=== PATIENT | female | born 2000 | race Caucasian/White ===

== ENCOUNTER 2018-12-11 18:32 | Emergency (ER) | payer BC ==
--- NOTE | 2018-12-11 18:45 | UC ---
Respiratory Complaint HPI - HPI Summary HPI Summary: 18 yo female presents with cough. She tells me that her symptoms started 4 days ago with a sore throat and body aches. [facility] and strep test was negative and was told her symptoms were likely viral. Since that time she has developed a dry persistent cough. She has been taking ibuprofen with little change in her symptoms. She does not smoke. Denies fever, chills, sinus symptoms, SOB, chest pain, n/v. - History of Current Complaint Stated Complaint: COUGH Time Seen by Provider: 12/11/18 18:44 Hx Obtained From: Patient Hx Last Menstrual Period: 3 months ago Severity Initially: Mild Severity Currently: Mild Pain Intensity: 2 Pain Scale Used: 0-10 Numeric Character: Cough: Nonproductive - Allergies/Home Medications Allergies/Adverse Reactions: Allergies Allergy/AdvReac Type Severity Reaction Status Date / Time bee venom protein (honey bee) Allergy Rash And Verified 12/11/18 18:45 Itching MS Bee Venom [Bee Venom] Allergy rash, hives Verified 08/09/14 11:34 MS Fish Allergy Allergy Rash Verified 08/09/14 11:37 [Fish Allergy] pineapple Allergy Unknown Verified 12/11/18 18:45 Reaction Details fish Allergy Rash Uncoded 12/11/18 18:45 Home Medications: Home Medications Ibuprofen [Advil] 600 mg PO Q6HR PRN 12/11/18 [History Confirmed 12/11/18] PMH/Surg Hx/FS Hx/Imm Hx - Additional Past Medical History Additional PMH: None Psychological History: Depression - Surgical History Surgical History: None - Family History Known Family History: Positive: Non-Contributory - Social History Occupation: Student Lives: Dormitory/Roommates Alcohol Use: None Substance Use Type: None Smoking Status (MU): Never Smoked Tobacco - Immunization History Most Recent Influenza Vaccination: none Most Recent Pneumonia Vaccination: N/A Review of Systems All Other Systems Reviewed And Are Negative: No Constitutional: Positive: Negative Skin: Positive: Negative Eyes: Positive: Negative ENT: Positive: Sore Throat Respiratory: Positive: Cough Cardiovascular: Positive: Negative Gastrointestinal: Positive: Negative Neurovascular: Positive: Negative Neurological: Positive: Negative Psychological: Positive: Negative Physical Exam - Summary Physical Exam Summary: GENERAL: NAD. WDWN. No pain distress. SKIN: No rashes, sores, lesions, or open wounds. HEENT: Head: AT/NC Eyes: EOM intact. Conjunctiva clear without inflammation or discharge. Ears: Hearing grossly normal. TMs intact, no bulging, erythema, or edema. Nose: Nasal mucosa pink and moist. NTTP maxillary and frontal sinus. Throat: Posterior oropharynx without exudates, erythema, or tonsillar enlargement. Uvula midline. NECK: Supple. Nontender. No lymphadenopathy. CHEST: CTAB. No accessory muscle use. Breathing comfortably and in no distress. CV: RRR. Pulses intact. Cap refill <2seconds NEURO: Alert. PSYCH: Age appropriate behavior. Triage Information Reviewed: Yes Vital Signs: Vital Signs: Temp Pulse Resp BP Pulse Ox 98.9 F 85 18 117/90 100 12/11/18 18:47 12/11/18 18:47 12/11/18 18:47 12/11/18 18:47 12/11/18 18:47 Vital Signs Reviewed: Yes Respiratory Course/Dx - Course Course Of Treatment: Suspect bronchitis. In the clinic pt was given a duoneb treatment for her cough and reported improvement and easier to take a deep breath. Will rx for albuterol inhaler, prednisone, and tessalon for her cough - Differential Dx/Diagnosis Provider Diagnosis: Bronchitis Discharge ED - Sign-Out/Discharge Documenting (check all that apply): Patient Departure All imaging exams completed and their final reports reviewed: No Studies - Discharge Plan Condition: Stable Disposition: HOME Prescriptions: Albuterol HFA INHALER* [Ventolin HFA Inhaler*] 1 puff INH Q6H PRN #1 mdi PRN Reason: Sob/Wheezing Benzonatate CAP* [Tessalon 100 MG CAP*] 100 mg PO TID PRN #21 cap PRN Reason: Cough predniSONE TAB* [Deltasone 20 MG TAB*] 40 mg PO DAILY #10 tab Patient Education Materials: Acute Bronchitis (ED) Referrals: Lowell PALACIO,Jackie Mina [Primary Care Provider] - Additional Instructions: Your symptoms are likely from a viral infection. Viral infections do not respond to antibiotics and are limited to the treatment of symptoms. Viral infections typically run their course in 7-10 days. Drink plenty of fluids, especially if you are running any fever. Use salt water gargles several times a day. Take over the counter acetaminophen (Tylenol) or ibuprofen (Advil, Motrin) according to directions as needed for pain or fever. You may also use Chloraseptic spray or Cepacol lonzenges according to directions which contain a numbing medication and can provide some temporary relief from a sore throat. Return here or follow up with your primary care provider in 7 days if symptoms persist. - Billing Disposition and Condition Condition: STABLE Disposition: Home
[2018-12-11 18:50] VITALS: BP 117/90
[2018-12-11] MEDS ORDERED: Albuterol/Ipratropium NEB.SOL* Albuterol 2.5 MG/Ipratropium 0.5 MG 3 ML INH ONE (18:52)
== END 2018-12-11 19:39 | disposition home or self-care (01) ==
LOC: UCEAST 18:32
DX: J40 Bronchitis, not specified as acute or chronic (principal); Z91.030 Bee allergy status; Z91.013 Allergy to seafood; Z91.018 Allergy to other foods
CPT/HCPCS: 99202; A9270-GY; G0463